=== PATIENT | male | born 2000 | race African-American/Black ===

== ENCOUNTER 2020-07-23 09:44 | Emergency (ER) | payer SELFPAY ==
[~2020-07-23] VITALS: Ht 177.8 cm; Wt 91.0 kg
[~2020-07-23 09:44] MED LIST: AMOXICILLIN500 MG OR; AMOXIL400 MG/5 M OR; BENADRYL25 MG OR; MEDDOSEPAK OR; TYLENOL & COD12.5 ML OR; TYLENOL325 MG
[2020-07-23] MEDS ORDERED: HYDROCO/APAP1 TA9 PO (11:12)
[2020-07-23] MEDS ORDERED: KEFLEX500 MG PO (11:12)
[2020-07-23 11:16] VITALS: BP 134/94
== END 2020-07-23 11:23 | disposition home or self-care (01) | DRG 395 ==
LOC: ED 09:44
PROC: 0D9P3ZZ Drainage of Rectum, Percutaneous Approach (ICD-10-PCS; principal; 2020-07-23)
DX: K61.1 Rectal abscess (principal); B96.20 Unspecified Escherichia coli [E. coli] as the cause of diseases classified elsewhere

== ENCOUNTER 2024-01-26 07:38 | Emergency (ER) | payer SELFPAY ==
[~2024-01-26] VITALS: Ht 182.9 cm; Wt 85.0 kg
[~2024-01-26 07:38] MED LIST changes: +BACTRIM DS1 TAB PO; +HYDROCO/APAP1 TA9 PO; +IBUPROFEN600 MG PO; +KEFLEX500 MG PO
[2024-01-26 07:45] VITALS: BP 127/69
[2024-01-26 07:54] VITALS: BP 127/69
== END 2024-01-26 07:56 | disposition home or self-care (01) | DRG 951 ==
LOC: ED 07:38
DX: Z48.01 Encounter for change or removal of surgical wound dressing (principal)